=== PATIENT | female | born 1960 | race Caucasian/White ===

== ENCOUNTER 2022-12-23 12:44 | Outpatient (AMB) | payer MEDICARE, MEDICAID, SELFPAY ==
--- NOTE | 2022-12-23 12:59 | HO.SPINEOV ---
Intake Intake Visit Reasons: low back pain Intake Note: Mrs. Brooks is here today c/o low back pain. MRI done @ [facility]/brought disc. [employer] Required: No Assessment & Plan Assessment & Plan (1) Chronic idiopathic pain syndrome: Code(s): G89.29 - Other chronic pain Plan Dear colleague, On 12/23/2022, I saw your patient Olga Brooks for ongoing low back pain and bilateral lumbar radiculopathy. I know this patient from my previous practice at [facility]. She was not deemed to be a surgical candidate as her MRI of the lumbar spine reviews no major abnormalities requiring surgery. She does have thoracic T3-4 for central disc herniation from which she is not symptomatic. She comes in today to discuss her medications. Apparently, her oxycodone was replaced with meloxicam an attempt was made to stop the gabapentin. She states that the oxycodone 5 mg, which she was taking not daily, was given her relief when she needed it. The meloxicam is not helping. She tried every other therapies without success. I hope for the patient that the primary care physician is willing to restart oxycodone to control her pain symptoms. I would also advise to continue to gabapentin. Reviewed the new MRI of the lumbar and thoracic spine in detail during this consult and no new findings were observed. She will return to my clinic as needed. Spent 30 minutes in this consult for preparation and discussing plan of care. Frank Green MD, PhD Spine Fellowship Trained Neurosurgeon Director, [facility] Coding Level of Care Code New Pt Level 3 (42221) Diagnoses Chronic idiopathic pain syndrome G89.29
== END 2022-12-23 13:47 | disposition home or self-care (01) ==
PROVIDERS: Visit Provider Neurological Surgery
DX: G89.29 Other chronic pain (principal)
CPT/HCPCS: 99203

== ENCOUNTER → 2022-12-23 12:44 | Outpatient (BNVA) | payer MEDICARE, MEDICAID, SELFPAY | PROVIDERS: Visit Provider Neurological Surgery ==